=== PATIENT | female | born 1975 | race Asian ===

== ENCOUNTER 2019-03-26 06:15 | Emergency (ER) | payer MEDICAID ==
[~2019-03-26] VITALS: Ht 157.5 cm; Wt 54.0 kg
[2019-03-26 06:29] VITALS: BP 103/74
--- NOTE | 2019-03-26 06:30 | NUR ---
ED Nurse Note: Patient walked in to ER c/o right arm pain 06/04. Per patient it started yesterday, and since this morning she barely can move it. AAO x4, VSS at this time, skin is dry, warm to touch.
[2019-03-26] MEDS ORDERED: Acetaminophen 500mg (ES) tab ORAL ONE (06:45)
--- NOTE | 2019-03-26 07:20 | NUR ---
ED Nurse Note: received pt from THIERRY Curry. Pt resting in bed, a/ox4. came to ED for right shoulder pain. no trauma noted. All meds given by previous RN. Will continue to monitor.
--- NOTE | 2019-03-26 07:43 | Diagnostic Imaging Report ---
EXAM: XR Right Shoulder Complete, 2 or More Views. CLINICAL HISTORY: PAIN TECHNIQUE: Two or more views of the right shoulder. COMPARISON: No relevant prior studies available. FINDINGS: Bones: Unremarkable. No acute fracture. Joints: Unremarkable. No dislocation. Soft tissues: Unremarkable. IMPRESSION: Normal right shoulder.
--- NOTE | 2019-03-26 07:47 | Emergency Room Report ---
History of Present Illness General Chief Complaint: Upper Extremity Injury Source: Patient Present Illness HPI 43-year-old female presents ED complaining of right shoulder pain 1 day. States that pain started yesterday while she was typing at her desk states pain got progressively worse. States she was unable to sleep because of the pain so she came to the ED. Pain is sharp, 8 out of 10, nonradiating. Worse with abduction. Denies any recent fall or injury. Denies any physical activity that may have exacerbated shoulder. No other aggravating relieving factors. Denies any other associated symptoms Allergies: Coded Allergies: No Known Allergies (Unverified , 03/26/19) Patient History Past Medical History: none Past Surgical History: none Pertinent Family History: none Social History: Denies: smoking, alcohol use, drug use Last Menstrual Period: 02/21/19 Now: No : 2 Para: 2 Immunizations: UTD Reviewed Nursing Documentation: PMH: Agreed; PSxH: Agreed Nursing Documentation-PMH Past Medical History: No Stated History Review of Systems All Other Systems: negative except mentioned in HPI Physical Exam Vital Signs Date Time Temp Pulse Resp B/P (MAP) Pulse Ox O2 Delivery O2 Flow Rate FiO2 03/26/19 06:18 97.7 81 16 103/74 (84) 98 Room Air Sp02 EP Interpretation: reviewed, normal General Appearance: no apparent distress, alert, GCS 15, non-toxic Head: normocephalic Eyes: bilateral eye normal inspection, bilateral eye PERRL ENT: normal ENT inspection Neck: normal inspection Respiratory: normal inspection Cardiovascular #1: normal inspection Gastrointestinal: normal inspection Rectal: deferred Genitourinary: no CVA tenderness Musculoskeletal: decreased range of motion - R shoulder Neurologic: alert, oriented x3, responsive, motor strength/tone normal, sensory intact, speech normal Psychiatric: normal inspection Skin: normal inspection Lymphatic: normal inspection Procedures Splinting Splinting : Consent: Verbal Pre-Made Type: sling Pre-Proc Neuro Vasc Exam: normal Post-Proc Neuro Vasc Exam: normal Patient Tolerated: Well Complications: None Medical Decision Making Diagnostic Impression: Primary Impression: Shoulder strain Qualified Codes: S46.911A - Strain of unspecified muscle, fascia and tendon at shoulder and upper arm level, right arm, initial encounter ER Course Hospital Course 43-year-old F presents to ED complaining of R shoulder pain Differential diagnoses include: Fracture, dislocation, sprain, contusion Clinical course Patient placed on stretcher. After initial history and physical, I ordered pain medications and Xrays of R shoulder Xrays read shows no acute fracture/dislocation. likely strain. recommended NSAIDs, modified activity safe for discharge with close outpatient followup. i'll provide ortho referrals Diagnosis - shouler strain Stable and discharged to home with prescription for Motrin, lidoderm. weight bear as tolerated. Followup with PMD/ortho. Return to ED if symptoms recur or worsen Other X-Ray Diagnostic Results Other X-Ray Diagnostic Results : X-Ray ordered: R shoulder # of Views/Limited Vs Complete: 3 View Indication: Pain EP Interpretation: Yes Interpretation: no dislocation, no soft tissue swelling, no fractures Impression: No acute disease Electronically Signed by: Electronically signed by Lobito Arredondo MD Last Vital Signs Date Time Temp Pulse Resp B/P (MAP) Pulse Ox O2 Delivery O2 Flow Rate FiO2 03/26/19 07:19 97.7 03/26/19 06:29 16 103/74 98 Room Air 03/26/19 06:18 81 Status: improved Disposition: HOME, SELF-CARE Condition: Stable Scripts Lidocaine (Lidoderm) 1 Each Adh..patch 1 PATCH TOPIC DAILY, #7 PATCH 0 Refills Patch(es) may remain in place for up to 12 hours in any 24-hour period. Prov: Lobito Arredondo MD 03/26/19 Ibuprofen* (MOTRIN*) 600 Mg Tablet 600 MG ORAL Q8H PRN for For Pain, #30 TAB 0 Refills Prov: Lobito Arredondo MD 03/26/19 Referrals: [facility],REFERRING (PCP) Lobito Arredondo MD Mar 26, 2019 07:47
[2019-03-26] MEDS ORDERED: LIDODERM700 M1 TOPIC (07:48)
[2019-03-26] MEDS ORDERED: IBUPROFEN600 MG ORAL (07:48)
[2019-03-26 07:53] VITALS: BP 112/76
--- NOTE | 2019-03-26 07:54 | NUR ---
ER DISCHARGE NOTE: Patient is cleared to be discharged per ERMD after a sling applied on Rt arm, pt is aox4, on room air, with stable vital signs. pt was given dc and prescription instructions with x-ray results, pt was able to verbalize understanding, pt id band removed. pt is able to ambulate with steady gait. pt took all belongings.
== END 2019-03-26 07:55 | disposition home or self-care (01) ==
LOC: EMR 06:37
DX: S46.911A Strain of unspecified muscle, fascia and tendon at shoulder and upper arm level, right arm, initial encounter (principal); X58.XXXA Exposure to other specified factors, initial encounter; Y92.9 Unspecified place or not applicable
CPT/HCPCS: 99283